=== PATIENT | female | born 2000 | race Caucasian/White ===

== ENCOUNTER 2023-09-28 04:27 | Inpatient (IN) ==
[2023-09-28] MEDS ORDERED: Lactated Ringers 1000 ml BAG 1,000 ML IV ONE (05:09)
[2023-09-28] MEDS ORDERED: Lidocaine 1% VIAL 10 MG/ML 30 ML VIAL INJ PRN (05:09)
[2023-09-28] MEDS ORDERED: Penicillin G Potassium IV 5,000,000 UNITS in NS 0.9% 100 ml BAG 100 ML IVPB ONE (05:09)
[2023-09-28 06:04] LABS: ABS Lymphocytes 0.7 10^3/uL (1.0-4.8); ABS Monocytes 0.3 10^3/uL (0.0-0.9); ABS Neutrophils 11.5 10^3/uL (1.5-7.6); Hematocrit 36.9 % (35-45); Hemoglobin 12.9 g/dL (11.5-14.3); Lymphocyte % 5.9 %; Mean Corpuscular Hemoglobin 30.9 pg (27-33); Mean Corpuscular Hgb Conc 34.9 g/dL (31-36); Mean Corpuscular Volume 88.7 fL (80-97); Mean Platelet Volume 7.6 fL (7.5-11.2); Platelet Count 297 10^3/uL (150-450); Red Blood Count 4.16 10^6/uL (3.63-4.92); Red Cell Distribution Width 12.3 % (12-17); White Blood Count 12.6 10^3/uL (3.8-11.8)
[2023-09-28 06:20] LABS: Urine Benzodiazepine Screen None Detected (None Detect); Urine Cannabinoids Screen None Detected (None Detect); Urine Opiates Screen None Detected (None Detect)
[2023-09-28 07:37] LABS: Influenza A Molecular Negative (Negative); Influenza B Molecular Negative (Negative)
[2023-09-28 08:39] LABS: Urine Creatinine Concentration 136.23 mg/dL (20.00-320.00); Urine TP Creat Ratio 0.28 mg/mg
[2023-09-28 08:47] LABS: Albumin 3.8 g/dL (3.2-5.2); Albumin/Globulin Ratio 1.2 (1-3); Creatinine, Serum 0.55 mg/dL (0.51-0.95); Globulin 3.1 g/dL (2-4); Potassium 4.1 mmol/L (3.5-5.0); Total Bilirubin 0.6 mg/dL (0.2-1.0); Total Protein 6.9 g/dL (6.4-8.9); Uric Acid 2.7 mg/dL (2.3-6.6)
[2023-09-28] MEDS ORDERED: Penicillin G Potassium IV 3,000,000 UNITS in NS 0.9% 100 ml BAG 100 ML IVPB SCH (10:30)
[2023-09-28] MEDS ORDERED: Oxytocin 10 UNITS/ML 1 ML VIAL IM PRN (11:06)
[2023-09-28] MEDS ORDERED: Witch Hazel PAD JAR TOPICAL PRN (11:06)
[2023-09-28] MEDS ORDERED: Lactated Ringers 1000 ml BAG 1,000 ML IV SCH (12:00)
[2023-09-28] MEDS: Dibucaine 1% OINT 28.35 GM TUBE PR PRN (12:03)
[2023-09-28] MEDS ORDERED: Lidocaine 1% MPF 5 ML VIAL ONE (14:38)
[2023-09-29 12:18] LABS: ABS Lymphocytes 1.7 10^3/uL (1.0-4.8); ABS Monocytes 0.7 10^3/uL (0.0-0.9); ABS Neutrophils 9.4 10^3/uL (1.5-7.6); Eosinophil % 0.3 %; Hematocrit 35.1 % (35-45); Hemoglobin 11.9 g/dL (11.5-14.3); Lymphocyte % 14.4 %; Mean Corpuscular Hemoglobin 30.3 pg (27-33); Mean Corpuscular Hgb Conc 33.8 g/dL (31-36); Mean Corpuscular Volume 89.5 fL (80-97); Mean Platelet Volume 7.2 fL (7.5-11.2); Platelet Count 289 10^3/uL (150-450); Red Blood Count 3.92 10^6/uL (3.63-4.92); Red Cell Distribution Width 12.5 % (12-17); White Blood Count 11.8 10^3/uL (3.8-11.8)
[2023-09-30] MEDS: Dibucaine 1% OINT 28.35 GM TUBE PR PRN (08:44)
[2023-09-30] MEDS ORDERED: Measles, Mumps,Rubella VACC 0.5 ML/VIAL SUBCUT ONE (13:30)
[2023-09-30 15:22] VITALS: BP 110/69
== END 2023-09-30 14:40 | disposition home or self-care (01) | DRG 560 ==
LOC: MCHOBOUT 04:27 → MCHOB 05:14
PROVIDERS: ADMIT Midwife; ATTEND Midwife